=== PATIENT | male | born 1970 | race Two or more races ===

== ENCOUNTER → 2017-02-25 | Outpatient (CLI) | payer OTHER ==
[~2017-02-25] MED LIST: CONTRAST GIVEN MC PRN; IOHEXOL 240 MG/ML 50ML VIAL. PO ONE; IOHEXOL 300 MG/ML 75 ML VIAL IV ONE
--- NOTE | 2017-02-25 12:37 | RAD ---
Indication ventral abdominal wall hernia. Axial images through the abdomen and pelvis were obtained. Both oral and IV contrast were administered. Approximately 75 cc of Omnipaque 300 was administered intravenously. The lung bases are clear. There is a very tiny periumbilical hernia containing only fat and appearing uncomplicated. No additional abdominal wall hernia is seen. There is fatty infiltration of the liver. No mass lesion is seen in the liver. The spleen appears unremarkable and the gallbladder appears grossly normal. No pancreatic abnormality is seen. There are no adrenal masses and the kidneys appear unremarkable. No acute finding is apparent in the abdomen. In the pelvis there are a few mesenteric lymph nodes seen. These are likely incidental. An acute or significant finding in the pelvis is not seen. IMPRESSION: No acute finding seen in the abdomen or pelvis. Tiny periumbilical hernia containing only fat. Fatty infiltration of the liver. PQRS Compliance Statement: One or more of the following individualized dose reduction techniques were utilized for this examination: 1. Automated exposure control 2. Adjustment of the mA and/or kV according to patient size 3. Use of iterative reconstruction technique
== END | disposition home or self-care (01) ==
LOC: CT 09:08
PROVIDERS: ATTEND Specialist
DX: K43.9 Ventral hernia without obstruction or gangrene (principal); K76.0 Fatty (change of) liver, not elsewhere classified; K42.9 Umbilical hernia without obstruction or gangrene; E11.9 Type 2 diabetes mellitus without complications
CPT/HCPCS: 74177; Q9966; Q9967

== ENCOUNTER → 2017-02-25 | Outpatient (CLI) | payer OTHER ==
[2017-02-25 10:58] LABS: ALBUMIN 3.9 g/dL (3.4-5.0); CALCIUM 8.8 mg/dL (8.5-10.1); CREATININE 1.1 mg/dL (0.7-1.3); GFR 72.7; POTASSIUM 3.9 mmol/L (3.5-5.1); TOTAL BILIRUBIN 0.5 mg/dL (0.2-1.0); TOTAL PROTEIN 7.8 g/dL (6.4-8.2)
[2017-02-25 11:04] LABS: CHOLESTEROL/HDL RATIO 5.6
== END | disposition home or self-care (01) ==
LOC: LAB 10:12
PROVIDERS: ATTEND Internal Medicine
DX: E11.65 Type 2 diabetes mellitus with hyperglycemia (principal)
CPT/HCPCS: 36415; 80053; 80061; 82043; 82570; 83036

== ENCOUNTER 2017-03-04 06:49 | Day surgery (SDC) | payer OTHER ==
[~2017-03-04 06:49] MED LIST changes: -CONTRAST GIVEN MC PRN; +FENO160T PO; +GLIP10TA13 PO; -IOHEXOL 240 MG/ML 50ML VIAL. PO ONE; -IOHEXOL 300 MG/ML 75 ML VIAL IV ONE; +PRAV20TA2 PO; +SAXA1TBM3 PO
[2017-03-04] MEDS ORDERED: HYDROmorphone 2 MG/ML VIAL IV PRN (07:00)
[2017-03-04] MEDS ORDERED: fentaNYL PF VIAL 100 MCG/2 ML VIAL IV PRN (07:00)
[2017-03-04] MEDS ORDERED: LIDOCAINE 1% PF 2 ML VIAL. ID PRN (07:00)
[2017-03-04] MEDS ORDERED: MORPHINE SULFATE 2 MG/ML DISP.SYRIN. IV PRN (07:00)
[2017-03-04] MEDS ORDERED: ONDANSETRON PF 4 MG/2 ML VIAL. IV PRN (07:00)
[2017-03-04] MEDS ORDERED: PROCHLORPERAZINE 10 MG/2 ML VIAL. IV PRN (07:00)
[2017-03-04] MEDS ORDERED: IV RINGERS,LACTATED 1000ML 1,000 ML IV SCH (07:00)
[2017-03-04] MEDS ORDERED: ONDANSETRON PF 4 MG/2 ML VIAL. ONE (07:15)
[2017-03-04] MEDS ORDERED: PROPOFOL 20 ML IV ONE (07:15)
[2017-03-04] MEDS ORDERED: ROCURONIUM 100 MG/10 ML VIAL. ONE (07:15)
[2017-03-04] MEDS ORDERED: DEXAMETHASONE SOD PHOS 20 MG/5 ML VIAL. ONE (07:15)
[2017-03-04] MEDS ORDERED: LIDOCAINE 2% PF Vial for OR 5 ML VIAL. ONE (07:15)
[2017-03-04] MEDS ORDERED: BUPIVACAINE-EPI 0.5%-1:200000 50 ML VIAL. ONE (07:39)
[2017-03-04 07:47] LABS: INR 0.9 (0.8-1.1)
[2017-03-04] MEDS ORDERED: SUCCINYLCHOLINE 200 MG/10 ML VIAL. ONE (08:53)
[2017-03-04] MEDS ORDERED: fentaNYL PF VIAL 250 MCG/5 ML VIAL ONE (08:54)
[2017-03-04] MEDS ORDERED: MIDAZOLAM HCL/PF 2 MG/2 ML VIAL. ONE (09:27)
[2017-03-04] MEDS ORDERED: ceFAZolin 1GM IVPB FOR OMNI 1 GM/50 ML BAG IV ONE (09:30)
--- NOTE | 2017-03-04 09:33 | PDOC ---
SURGICAL PROGRESS NOTE Subjective No change in dictated H&P. Vital Signs Vital Signs Date Time Temp Pulse Resp B/P (MAP) Pulse Ox O2 Delivery O2 Flow Rate FiO2 03/04/17 07:38 98.5 72 97 98.5 03/04/17 07:35 18 138/ Room [facility] Laboratory Tests Test 03/04/17 07:29 03/04/17 07:30 Glucose (Fingerstick) 215 mg/dL (70-99) Prothrombin Time 12.0 SEC (11.7-14.0) Prothromb Time International Ratio 0.9 (0.8-1.1) Laboratory Tests Test 03/04/17 07:29 03/04/17 07:30 Glucose (Fingerstick) 215 mg/dL (70-99) Prothrombin Time 12.0 SEC (11.7-14.0) Prothromb Time International Ratio 0.9 (0.8-1.1) MARCIAL MURDOCK MD Mar 04, 2017 09:33
--- NOTE | 2017-03-04 09:37 | PDOC ---
SURGICAL PROGRESS NOTE Subjective Op NOte: Surgeon..................................Gurpreet Pre and post op diag...............Incarcerated umbilical hernia Anesthesia............................general Procedure.............................Repair incarcerated umbilical hernia Drains..................................none Fluids...................................see anesthesia sheet Blood loss............................3cc Condition..............................satisfactory Vital Signs Vital Signs Date Time Temp Pulse Resp B/P (MAP) Pulse Ox O2 Delivery O2 Flow Rate FiO2 03/04/17 07:38 98.5 72 97 98.5 03/04/17 07:35 18 138/ Room [facility] Laboratory Tests Test 03/04/17 07:29 03/04/17 07:30 Glucose (Fingerstick) 215 mg/dL (70-99) Prothrombin Time 12.0 SEC (11.7-14.0) Prothromb Time International Ratio 0.9 (0.8-1.1) Laboratory Tests Test 03/04/17 07:29 03/04/17 07:30 Glucose (Fingerstick) 215 mg/dL (70-99) Prothrombin Time 12.0 SEC (11.7-14.0) Prothromb Time International Ratio 0.9 (0.8-1.1) MARCIAL MURDOCK MD Mar 04, 2017 09:37
[2017-03-04] MEDS ORDERED: OXYC-327 PO (09:45)
[2017-03-04] MEDS ORDERED: ePHEDrine PF IN SALINE 50 MG/5 ML DISP.SYRIN IV ONE (09:51)
[2017-03-04] MEDS ORDERED: PHENYLEPHRINE in 0.9% NACL PF 1 MG/10 ML DISP.SYRIN. IV ONE (09:51)
[2017-03-04] MEDS ORDERED: GLYCOPYRROLATE 1 MG/5 ML VIAL. ONE (10:39)
[2017-03-04] MEDS ORDERED: NEOSTIGMINE 10 MG/10 ML VIAL. ONE (10:39)
[2017-03-04] MEDS ORDERED: SCOPOLAMINE 1.5MG PATCH. TD ONE (10:45)
[2017-03-04] MEDS: fentaNYL PF VIAL 100 MCG/2 ML VIAL IV PRN ×2 (11:08→11:19)
--- NOTE | 2017-03-04 11:32 | OP ---
DATE OF SURGERY: 03/04/2017 SURGEON: John Murdock MD PREOPERATIVE DIAGNOSIS: Incarcerated umbilical hernia. POSTOPERATIVE DIAGNOSIS: Incarcerated umbilical hernia. ANESTHESIA: General. PROCEDURE: Repair of incarcerated umbilical hernia. TECHNIQUE: Under general anesthesia, the patient was properly prepped and draped in routine fashion. A supraumbilical incision was made as the patient had had excruciating pain at the umbilicus for about 3 months. It was so tender that he would go down to his knees almost when you touch it. There was no evidence or erythema, redness or infection. As such, the supraumbilical incision was made with a 15 blade and carried down through the skin. We then were able to put Jesse retractors on either side and dissect the sac from the umbilicus. We then entered the sac and there was just fat there that was adherent fat to the sac wall and so we had to cut this away and dissected so that this could be reduced. The actual defect was small, only about 1 cm or so and the content was reduced. There was some whitish material, I do not know if it was chronic inflammation one associated with the sac, this was amputated and sent to the lab. No evidence of any other pathology was noted other than the adhesions and the pain at the umbilicus. Two #1 Prolene sutures were used to approximate the fascia. These were tied and then the area around, it was anesthetized with 0.5% Marcaine and epinephrine. The resultant defect was inspected and all was well and we irrigated the wound and placed a #4-0 Vicryl to anchor the umbilicus down to the fascia, so we have a normal looking umbilicus. The subQ was approximated with 4-0 Vicryl to cover up the sutures, so that they will not be poking through. We then closed the skin using a 5-0 subcuticular Vicryl. This having been done, we applied a sterile dressing and the procedure was terminated. ESTIMATED BLOOD LOSS: Probably less than 3-5 mL. DRAINS: No drains were used. Fluids given can be obtained from the anesthesia sheet. CONDITION OF THE PATIENT: Satisfactory as he is returned to the recovery room. JOHN MURDOCK MD DR: MAYELA/karel JOB#: [id number] / [id number]
[2017-03-04] MEDS ORDERED: oxyCODONE/APAP 7.5/325 1 TAB TABLET PO PRN (12:00)
[2017-03-04 12:29] VITALS: BP 122/67
--- NOTE | 2017-03-05 10:32 | HP ---
ADMIT DATE: 03/04/2017 HISTORY OF PRESENT ILLNESS: The patient was referred by Dr. Lagos because of abdominal pain. The history shows the patient has periumbilical pain which is excruciating at times and unrelenting. He has had this for a month or two and has been on and off more than that. PAST MEDICAL HISTORY: Showed normal childhood diseases. I think he was treated for hypertension and diabetes and takes medicine for that. He has not had significant surgery and has no allergies. SOCIAL HISTORY: Shows that he does not smoke. He drinks only socially and uses no illicit drugs. FAMILY HISTORY: Noncontributory. PHYSICAL EXAMINATION: GENERAL: Showed an obese male in no acute distress. HEAD, EARS, EYES, NOSE AND THROAT: Grossly normal. CHEST: Clear bilaterally to auscultation. HEART: Had no murmurs, heaves, friction rubs or thrills and had a rate of 74 beats per minute and it was regular. ABDOMEN: Soft. No organomegaly was noted, but there was excruciating pain at the umbilicus. No redness. No evidence of peritoneal irritation, but just excruciating local pain at the umbilicus. The remainder of the abdomen showed no organomegaly or other abdominal abnormalities. GENITOURINARY: Normal male genitalia. EXTREMITIES: Grossly normal. IMPRESSION AND PLAN: Umbilical hernia, incarcerated. Though I could not palpate the hernia, because of the tenderness, I am certain that is what it is. We will get a CT scan to confirm this. MARCIAL MURDOCK MD DR: MAYELA/karel JOB#: [id number] / [id number]
--- NOTE | 2017-03-05 15:22 | PATHOLOGY ---
PATHOLOGY REPORT * * * * * * * * FINAL DIAGNOSIS: Fibroadipose tissue, "hernia sac," herniorrhaphy: - Fibroadipose tissue with acute and chronic inflammation and recent hemorrhage. ([facility]:r; 03/05/2017) REPORT ELECTRONICALLY SIGNED BY: Hector Marmolejo M.D. DATE/TIME: 03/05/2017 15:22 * * * * * * * * GROSS PATHOLOGY: Received in formalin labeled "Kaila Guzman, hernia sac," are two pieces of fibroadipose tissue measuring 1.0 x 0.8 x 0.5 cm in aggregate. No nodules or lesions are identified. The specimen is submitted in toto in cassette A1. ([facility]; 03/04/17) INITIAL CPT CODE(S): A; 83744 Professional services performed [place] [address] Technical services performed by [facility] at [address] [place] [address], [facility] [address] [address]. SPECIMEN(S) RECEIVED: A.Hernia sac CLINICAL HISTORY: Ventral hernia PATIENT: KAILA GUZMAN /AGE: 409/21/1970 (Age: 46) PATIENT #: [id number] ALT CASE #: SPECIMEN COLLECTION DATE: 03/04/2017 SPECIMEN RECEIVED DATE: 03/04/2017 [facility] - [address] [place] [address] - PHONE: [phone] * * * END OF REPORT * * *
== END 2017-03-04 12:31 | disposition home or self-care (01) ==
LOC: SURG 06:49
PROVIDERS: ATTEND Specialist
DX: K42.0 Umbilical hernia with obstruction, without gangrene (principal); Z79.01 Long term (current) use of anticoagulants; E78.00 Pure hypercholesterolemia, unspecified; E66.9 Obesity, unspecified; Z68.41 Body mass index [BMI] 40.0-44.9, adult; E11.9 Type 2 diabetes mellitus without complications; F17.200 Nicotine dependence, unspecified, uncomplicated; Z86.39 Personal history of other endocrine, nutritional and metabolic disease; Z72.89 Other problems related to lifestyle
CPT/HCPCS: 36415; 49587; 82962; 85610; 88302; A4215; J0330; J0690; J1100; J2250; J2370; J2405; J2704; J2710; J3010; J3490; J0780; J2001